=== PATIENT | male | born 1980 | race Caucasian/White ===

== ENCOUNTER 2018-04-20 10:10 | Emergency (ER) | payer OTHER, SELFPAY ==
[2018-04-20] VITALS (8 sets, daily range): BP systolic 146–191; BP diastolic 102–137; PULSE 82–104; RESP 16–20; TEMP 37.1; O2SAT 97–99; BMI 32.1
--- NOTE | 2018-04-20 10:46 | DI.RAD.S_ITS ---
PROCEDURE: XR CHEST 2V INDICATIONS: chest pain short of breath TECHNIQUE: 2 views of the chest were acquired. COMPARISON: None. FINDINGS: Surgical changes and devices: None. Lungs and pleura: No pleural effusions or pneumothorax. Interstitial prominence is seen throughout. Mediastinum: Mediastinal contours are normal. Heart size is normal. Bones and chest wall: No suspicious bony abnormalities. Mild dextroconvex scoliotic curvature is seen. Soft tissues appear unremarkable. IMPRESSION: Interstitial prominence is seen throughout. The interstitial prominence is nonspecific, yet may be related to pulmonary edema. Dictated by: Jameson Barclay M.D. on 04/20/2018 at 10:30 Approved by: Jameson Barclay M.D. on 04/20/2018 at 10:32
--- NOTE | 2018-04-20 10:49 | ED.GENADULT ---
HPI - General Adult General Chief complaint: Hypertension Stated complaint: HIGH BLOOD PRESSURE Time Seen by Provider: 04/20/18 10:18 Source: patient Mode of arrival: ambulatory History of Present Illness HPI narrative: Patient is a 37-year-old male presenting with shortness of breath. 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 He is noncompliant and has known hypertensive ischemic cardiomyopathy. He drinks energy drinks and smokes daily. He has an EF of about 35%. He has noticed over the last couple of weeks he is short of breath with exertion. He did not take his diuretics this morning to he could not take them and then drive to make his appointment. Has not taken any of his home medications this morning. She denies any chest pain or heart palpitations. He denies any cough, fever, lower extremity edema. Blood pressure in the office was 176/124. [place] Department Supervisor Dr. Garcia was concerned with his diastolic and recommended he come in for management and blood pressure control. Related Data Home Medications Medication Instructions Recorded Confirmed albuterol sulfate [Ventolin HFA] 2 puff INHALATION QID 04/20/18 04/20/18 carvedilol 12.5 mg PO BID 04/20/18 04/20/18 furosemide 20 mg PO DAILY 04/20/18 04/20/18 losartan 50 mg PO BID 04/20/18 04/20/18 spironolactone 25 mg PO DAILY 04/20/18 04/20/18 Allergies Allergy/AdvReac Type Severity Reaction Status Date / Time No Known Drug Allergies Allergy Verified 04/20/18 10:20 Review of Systems Review of Systems GENERAL: Denies chills, fatigue, malaise, fever, sweats, travel HEENT: Denies sinus pain, ear pain, sore throat, difficulty swallowing, neck pain RESPIRATORY: See HPI CARDIOVASCULAR: Denies chest pain, palpitations, orthopnea, edema GASTROINTESTINAL: Denies nausea, vomiting, abdominal pain, diarrhea, constipation, melena. : Denies dysuria, frequency, incontinence, hematuria, urinary retention, flank pain. MUSCULOSKELETAL: Denies weakness, joint pain, or bony pain SKIN: No rash, no erythema, no pruritus NEUROLOGIC: Denies weakness, dizziness, headache, numbness, change in speech, confusion PSYCHIATRIC: No concerning psychosocial issues. 12 point review of systems is negative except for those stated above and HPI PFSH Medical History CHF (congestive heart failure) (Acute) Cardiomyopathy (Acute) Hypertension (Acute) Social History Smoking Status: Current every day smoker Exam Initial Vital Signs Initial Vital Signs: Vital Signs Pulse Rate 104 H 04/20/18 10:15 Respiratory Rate 18 04/20/18 10:15 Blood Pressure 191/137 H 04/20/18 10:15 Pulse Oximetry 98 04/20/18 10:15 GENERAL: Well-appearing, well-nourished and in no acute distress. HEENT: Head atraumatic,EOMI, pupils reactive, face symmetric, CARDIOVASCULAR: Regular rate and rhythm without murmurs, rubs or gallops. RESPIRATORY: Breath sounds equal bilaterally, no wheezes rales or rhonchi. ABDOMEN: Soft, nontender. Normoactive bowel sounds all 4 quadrants. No guarding or rebound. EXTREMITIES: Normal range of motion, no clubbing or edema. Neurovascularly intact NEUROLOGICAL: Alert and oriented x4.Normal gait and speech. Cranial nerves II through XII grossly intact. SKIN: Warm, dry, no laceration, no petechiae, no rashes or lesions. Course Orders Ordered: ED Orders 04/20/18 10:36 B Type Natriuretic Peptide Stat Complete Blood Count AUTO DIFF Stat 04/20/18 10:44 Consult to Respiratory Therapy Evaluate & Treat Comprehensive Metabolic Panel Stat Troponin & CK Cardiac Panel Stat 04/20/18 10:46 XR chest 2V Stat Discontinued Medications Carvedilol (Coreg) 12.5 mg PO NOW ONE Stop: 04/20/18 11:17 Last Admin: 04/20/18 11:34 Dose: 12.5 mg Labetalol HCl (Normodyne) 20 mg IV NOW ONE Stop: 04/20/18 10:47 Last Admin: 04/20/18 10:57 Dose: 20 mg Vital Signs - 8 hr 04/20/18 10:15 04/20/18 10:23 04/20/18 10:55 Temperature 98.7 F Pulse Rate 104 H 104 H 98 H Respiratory Rate 18 16 18 Blood Pressure 188/137 H Blood Pressure [Left Arm] 191/137 H 191/129 H Pulse Oximetry 98 99 99 04/20/18 11:01 04/20/18 11:15 04/20/18 11:34 Temperature Pulse Rate 104 H 87 82 Respiratory Rate 18 Blood Pressure 146/104 H Blood Pressure [Left Arm] 183/136 H 168/113 H Pulse Oximetry 98 98 04/20/18 12:00 04/20/18 12:40 Temperature Pulse Rate 83 84 Respiratory Rate 16 20 Blood Pressure 146/102 H Blood Pressure [Left Arm] 152/103 H Pulse Oximetry 97 97 Medical Decision Making Lab Data Lab results reviewed: Yes I reviewed the patient's lab results. Result diagrams: 04/20/18 10:36 04/20/18 10:44 Lab Results 04/20/18 04/20/18 Range/Units 10:36 10:44 WBC 10.4 (4.5-11.0) X10^3/uL RBC 5.56 (4.5-5.9) X10^6/uL Hgb 16.4 (13.5-17.5) g/dL Hct 47.2 (41-53) % MCV 84.9 (80-100) fL MCH 29.5 (26-34) PG MCHC 34.7 (30-36) % RDW 13.5 (11.6-14.8) % Plt Count 220 (150-400) X10^3/uL Neut % (Auto) 71.1 (50-75) % Lymph % (Auto) 18.7 L (25-40) % Mineral % (Auto) 6.6 (3-14) % Eos % (Auto) 2.8 (2-4) % Baso % (Auto) 0.8 (0-2) % Neut # (Auto) 7400 H (3161-9453) /uL Sodium 143 (137-145) mmol/L Potassium 4.0 (3.4-5.1) mmol/L Chloride 104 (98-107) mmol/L Carbon Dioxide 27 (22-32) mmol/L BUN 11 (9-20) mg/dL Creatinine 0.90 (0.66-1.25) mg/dL Estimated GFR > 60.0 (>60) mL/min BUN/Creatinine Ratio 12.2 (6-22) Glucose 103 H (70-100) mg/dL Calcium 9.5 (8.4-10.2) mg/dL Total Bilirubin 0.9 (0.2-1.3) mg/dL AST 49 (17-59) IU/L ALT 51 (21-72) IU/L Alkaline Phosphatase 81 (38-126) U/L Total Creatine Kinase 105 (55-170) U/L CK-MB (CK-2) 2.39 H (<2.37) ng/mL CK-MB (CK-2) Rel Index 2.3 (1.5-5.0) % Troponin I 0.026 (0.01-0.034) ng/mL B-Natriuretic Peptide 204.0 H (<100) Total Protein 8.2 (6.3-8.2) g/dL Albumin 4.8 (3.5-5.0) g/dL Globulin 3.4 (1.7-4.1) g/dL Albumin/Globulin Ratio 1.4 (1.0-2.8) Imaging Data Chest x-ray: Radiologist's impression: PROCEDURE: XR CHEST 2V INDICATIONS: chest pain short of breath TECHNIQUE: 2 views of the chest were acquired. COMPARISON: None. FINDINGS: Surgical changes and devices: None. Lungs and pleura: No pleural effusions or pneumothorax. Interstitial prominence is seen throughout. Mediastinum: Mediastinal contours are normal. Heart size is normal. Bones and chest wall: No suspicious bony abnormalities. Mild dextroconvex scoliotic curvature is seen. Soft tissues appear unremarkable. IMPRESSION: Interstitial prominence is seen throughout. The interstitial prominence is nonspecific, yet may be related to pulmonary edema. Dictated by: Jameson Barclay M.D. on 04/20/2018 at 10:30 Approved by: Jameson Barclay M.D. on 04/20/2018 at 10:32 ECG Data Attestation: I personally reviewed and interpreted this ECG as follows: Prior ECG tracings: available for review Interpretation: Normal sinus rhythm rate [address] changes LVH noted similar to previous EKG in clinic earlier today. MDM Narrative Medical decision making narrative: Blood pressure is in a much more acceptable range. He is given his dose of Coreg as well. I have discussed with him at length it is important for him to take medications as directed and to stop smoking and stop drinking energy drinks. He understands and will try. Discharge Plan Departure Patient Disposition: Home Clinical Impression: Hypertension Discharge Date/Time: 04/20/18 12:40 Interventions: ED Discharge Assessment Last Done: 04/20/18 12:40 Instructions: DI for High Blood Pressure Activity Restrictions/Additional Instructions: *You have been diagnosed with hypertension *What to do: Stop smoking, stop energy during, take medication every day as you are supposed to *Continue to take medications as directed *Follow up with your primary care provider in 2-3 days, follow up with your digital cartographic technician as directed *Return to ER if you should have chest pain headache, shortness of breath, palpitation or any new, worsening or concerning symptoms Prescriptions: No Action losartan 50 mg Tablet 50 mg PO BID RF: 0 spironolactone 25 mg Tablet 25 mg PO DAILY RF: 0 carvedilol 3.125 mg Tablet 12.5 mg PO BID RF: 0 furosemide 20 mg Tablet 20 mg PO DAILY RF: 0 albuterol sulfate [Ventolin HFA] 90 mcg/actuation Hfa Aerosol Inhaler 2 puff INHALATION QID RF: 0 Referrals: Clarissa Garcia MD [Physician] -
[2018-04-20] MEDS: LABETALOL 100 MG/20ML MDV 20 MG IV (10:57)
[2018-04-20 11:01] LABS: Add Manual Diff / Slide Review NO; Basophils Percent Auto 0.8 % (0-2); Eosinophils Percent Auto 2.8 % (2-4); Hematocrit 47.2 % (41-53); Hemoglobin 16.4 g/dL (13.5-17.5); Lymphocytes Percent Auto 18.7 % (25-40); Mean Corpuscular HGB Conc 34.7 % (30-36); Mean Corpuscular Hemoglobin 29.5 PG (26-34); Mean Corpuscular Volume 84.9 fL (80-100); Monocytes Percent Auto 6.6 % (3-14); Neutrophils Absolute Auto 7400 /uL (3000-5900); Neutrophils Percent Auto 71.1 % (50-75); Platelet Count 220 X10^3/uL (150-400); Red Blood Cell Count 5.56 X10^6/uL (4.5-5.9); Red Cell Distribution Width 13.5 % (11.6-14.8); White Blood Cell Count 10.4 X10^3/uL (4.5-11.0)
[2018-04-20 11:09] LABS: Alanine Aminotransferase 51 IU/L (21-72); Albumin 4.8 g/dL (3.5-5.0); Albumin Globulin Ratio 1.4 (1.0-2.8); Alkaline Phosphatase 81 U/L (38-126); Aspartate Aminotransferase 49 IU/L (17-59); BUN Creatinine Ratio 12.2 (6-22); Bilirubin Total 0.9 mg/dL (0.2-1.3); Blood Urea Nitrogen 11 mg/dL (9-20); Calcium 9.5 mg/dL (8.4-10.2); Carbon Dioxide 27 mmol/L (22-32); Chloride 104 mmol/L (98-107); Creatine Kinase 105 U/L (55-170); Estimated Glomerular Filt Rate > 60.0 mL/min (>60); Globulin 3.4 g/dL (1.7-4.1); Glucose 103 mg/dL (70-100); HEMOLYSIS < 15 (0-50); Sodium 143 mmol/L (137-145); Total Protein 8.2 g/dL (6.3-8.2)
[2018-04-20 11:20] LABS: Troponin I 0.026 ng/mL (0.01-0.034)
[2018-04-20 11:24] LABS: CKMB % Relative Index 2.3 % (1.5-5.0); Creatine Kinase MB 2.39 ng/mL (<2.37)
[2018-04-20] MEDS: CARVEDILOL 12.5 MG TABLET PO (11:34)
== END 2018-04-20 12:40 | disposition home or self-care (01) ==
PROVIDERS: Emergency Provider Emergency Medicine
DX: I10 Essential (primary) hypertension (principal)
CPT/HCPCS: 36591; 71046; 80053; 82550; 82553; 83880; 84484; 85025; 93005; 96374; 99283; 99285

== ENCOUNTER → 2018-07-16 07:51 | Outpatient (CLI) | payer OTHER, SELFPAY ==
--- NOTE | 2018-07-16 | DI.ECHO.S_ITS ---
[place] +---------+ [facility] +---------+ : : [address] : : : : [id number] : : : : Phone: [phone]---------+ Echocardiogram Report + + :Name: EPIFANIO JOY Study Date: 07/16/2018 Height: 69 in : :[facility] Exam Location: IS Weight: 222 lb : : Gender: Male BSA: 2.2 m2 : :: 1980 Age: 37 yrs BP: 135/90 mmHg: :Reason For Study: Cardiomyopathy, Dilated : :Ordering Physician: Nic : :Jose Performed By: Zeny Page : :Referring: NIC SERRANO : + + Interpretation Summary The left ventricle is normal in size. Left ventricular ejection fraction is estimated to be 50 +/- 5%. The right ventricle is normal in size and function. A bicuspid aortic valve cannot be excluded. There is mild to moderate aortic regurgitation. The ascending aorta is moderately enlarged. Procedure: A two-dimensional transthoracic echocardiogram with color flow and Doppler was performed. The study quality was technically adequate. There is no prior echocardiogram noted for this patient. The patient was in normal sinus rhythm during the exam. Left Ventricle: The left ventricle is normal in size. There is borderline concentric left ventricular hypertrophy. There is no thrombus. Left ventricular ejection fraction is estimated to be 50 +/- 5%. There are no focal wall motion abnormalities. MV E/A: 1.1 Med Peak E' Noah: 5.5 cm/sec E/E' med: 17.5. Right Ventricle: The right ventricle is normal in size and function. Atria: Both atria are normal in size. There is no Doppler evidence for an interatrial shunt. Mitral Valve: The mitral valve is normal in structure and function. There is trace mitral regurgitation. Aortic Valve: A bicuspid aortic valve cannot be excluded. The aortic valve opens well. There is mild to moderate aortic regurgitation. There is an eccentric jet of aortic insufficiency directed against the anterior mitral leaflet. Tricuspid Valve: The tricuspid valve is normal in structure and function. There is a trace or physiologic amount of tricuspid regurgitation. Pulmonary artery pressures cannot be estimated because of the lack of a measurable TR jet velocity. Pulmonic Valve: The pulmonic valve is not well visualized. There is trace pulmonic regurgitation. Great Vessels: The aortic root is mildly dilated. The ascending aorta is moderately enlarged. The aortic arch is normal in size. The pulmonary artery is not well visualized, but is probably normal size. The IVC is of normal diameter and collapses greater than 50% with a sniff. This suggests a low right atrial pressure of 3 mm Hg. Pericardium/ Pleura There is no pericardial effusion. There is no pleural effusion. MMode/2D Measurements & Calculations LVIDd: 5.1 cm LVOT diam: 2.3 cm LVIDs: 4.1 cm Ao root diam: 4.0 cm FS: 20.4 % asc Aorta Diam: 4.1 cm EPSS: 0.96 cm Ao Arch Diam (Prox Trans): 2.7 cm IVSd: 1.0 cm LVPWd: 1.4 cm LV loya. diameter/BSA (cm/m^2): 2.4 LV sys. diameter/BSA (cm/m^2): 1.9 LA A2 area: 23.0 cm2 RA long axis: 5.5 cm LA A4 area: 14.8 cm2 RA area: 20.9 cm2 LA length (vol): 5.5 cm RA vol: 67.8 ml LA vol: 52.2 ml RA : 31.4 ml/m2 LA vol index: 24.2 ml/m2 IVC diam: 1.4 cm RVD1 (basal): 3.9 cm Doppler Measurements & Calculations Ao V2 max: 200.3 cm/sec LVOT Max Noah: 83.1 cm/sec Ao V2 mean: 151.4 cm/sec LV V1 max P.8 mmHg Ao max P.0 mmHg LV V1 VTI: 16.1 cm Ao mean P.7 mmHg JACI(I,D): 1.9 cm2 Ao V2 VTI: 35.3 cm JACI(V,D): 1.7 cm2 sev ratio: 0.46 JACI indexed to BSA (cm^2/m^2): 0.87 AI P1/2t: 541.6 msec AI dec slope: 242.7 cm/sec2 MV E max noah: 95.5 cm/sec TR max noah: 179.4 cm/sec MV A max noah: 87.6 cm/sec TR max P.9 mmHg MV E/A: 1.1 PA V2 max: 53.8 cm/sec Med Peak E' Noah: 5.5 cm/sec PA V2 mean: 33.4 cm/sec E/E' med: 17.5 PA mean P.50 mmHg Lat Peak E' Noah: 7.5 cm/sec PA Accel Time: 0.06 sec E/E' lat: 12.7 E/e' average: 15.1 MV dec time: 0.17 sec MV P1/2t: 51.8 msec MV P1/2t max noah: 94.7 cm/sec MVA(P1/2t): 4.2 cm2 Reading Physician:JUNO
== END ==
PROVIDERS: PCP Internal Medicine; Visit Provider Internal Medicine Cardiovascular Disease
DX: I35.1 Nonrheumatic aortic (valve) insufficiency (principal); I42.0 Dilated cardiomyopathy
CPT/HCPCS: 93306

== ENCOUNTER → 2023-03-30 13:32 | Outpatient (CLI) | payer OTHER, SELFPAY ==
--- NOTE | 2023-03-30 | DI.ECHO.S_ITS ---
[place] +---------+ [facility] +---------+ : : [address] : : : : [id number] : : : : Phone: [phone]+ Echocardiogram Report + + :Name: EPIFANIO JOY Study Date: 03/30/2023 Height: 68 in : :[facility] ReadingLocation: Weight: 215 lb : : Gender: Male BSA: 2.1 m2 : :: 1980 Age: 42 yrs BP: 132/98 mmHg: :Reason For Study: Bicuspid Aortic Valve : :Ordering Physician: MAGGIE, : :NIC Performed By: Patti Hubbard : :Referring: NIC SERRANO : + + Interpretation Summary The left ventricle is normal in size and wall thickness. The left ventricular ejection fraction is normal. The ejection fraction is estimated to be 60-65%. Compared to the prior exam, the left ventricular function is improved. The right ventricle is normal in size and function. The aortic valve is not well visualized. A bicuspid aortic valve cannot be excluded. The aortic valve opens well. The aortic valve is mildly calcified. There is a nodule calcification of presumed to be noncoronary cusp which is more prominent on today's study. In 2018, not much calcification of the aortic valve. There is mild to moderate aortic regurgitation. Compared to the prior echo study, there has been no change in the severity of aortic regurgitation. The IVC is of normal diameter and collapses greater than 50% with a sniff. This suggests a low right atrial pressure of 3 mm Hg. The ascending aorta is moderately enlarged. 4.3 cm in diameter. In July 2018, 4.1 cm in diameter. Procedure: A two-dimensional transthoracic echocardiogram with color flow and Doppler was performed. The study quality was technically adequate. Comparison is made with the echocardiogram of 07/16/2018. The patient was in normal sinus rhythm during the exam. Left Ventricle: The left ventricle is normal in size and wall thickness. There is no thrombus. The ejection fraction is estimated to be 60-65%. The left ventricular ejection fraction is normal. Compared to the prior exam, the left ventricular function is improved. There are no focal wall motion abnormalities. Diastolic parameters suggest a relaxation abnormality of the left ventricle, consistent with probable normal filling pressures. Right Ventricle: The right ventricle is normal in size and function. Atria: The left atrial size is normal. There has been no significant change since the previous study. Right atrial size is normal. There is no Doppler evidence for an interatrial shunt. Mitral Valve: There is mild mitral annular calcification. There is no mitral valve stenosis. There is trace mitral regurgitation. Aortic Valve: A bicuspid aortic valve cannot be excluded. The aortic valve is not well visualized. The aortic valve opens well. The aortic valve is mildly calcified. There is a nodule calcification of presumed to be noncoronary cusp which is more prominent on today's study. In 2018, not much calcification of the aortic valve. There is no aortic valve stenosis. There is mild to moderate aortic regurgitation. Compared to the prior echo study, there has been no change in the severity of aortic regurgitation. Tricuspid Valve: The tricuspid valve is normal. There is no tricuspid stenosis. There is trace tricuspid regurgitation. The right ventricular systolic pressure is estimated to be at least 16 mmHg based on an estimated right atrial pressure of 3 mm Hg. Pulmonic Valve: The pulmonic valve is not well visualized. There is no pulmonic valvular stenosis. There is trace pulmonic regurgitation. Great Vessels: The aortic root is borderline dilated. The ascending aorta is moderately enlarged. The pulmonary artery is normal size. The IVC is of normal diameter and collapses greater than 50% with a sniff. This suggests a low right atrial pressure of 3 mm Hg. Pericardium/ Pleura There is no pericardial effusion. There is no pleural effusion. MMode/2D Measurements & Calculations LVIDd: 4.7 cm LVOT diam: 2.1 cm LVIDs: 2.9 cm Ao root diam: 3.8 cm FS: 38.3 % asc Aorta Diam: 4.3 cm EPSS: 1.0 cm IVSd: 0.90 cm LVPWd: 1.0 cm LV loya. diameter/BSA (cm/m^2): 2.2 LV sys. diameter/BSA (cm/m^2): 1.4 LA A2 area: 15.1 cm2 RA long axis: 4.9 cm LA A4 area: 11.2 cm2 RA area: 13.8 cm2 LA length (vol): 5.6 cm RA vol: 33.0 ml LA vol: 25.8 ml RA : 15.6 ml/m2 LA vol index: 12.2 ml/m2 RVD1 (basal): 3.2 cm LVLs ap4: 6.8 cm LVLd ap2: 7.9 cm TAPSE_phl: 2.0 cm LVLs ap2: 7.0 cm Doppler Measurements & Calculations Ao V2 max: 185.8 cm/sec LVOT Max Noah: 100.5 cm/sec Ao V2 mean: 129.0 cm/sec LV V1 max P.0 mmHg Ao max P.0 mmHg LV V1 VTI: 19.5 cm Ao mean P.8 mmHg JACI(I,D): 1.9 cm2 Ao V2 VTI: 35.5 cm JACI(V,D): 1.9 cm2 sev ratio: 0.55 JACI indexed to BSA (cm^2/m^2): 0.90 MV E max noah: 70.2 cm/sec TR max noah: 180.0 cm/sec MV A max noah: 84.4 cm/sec TR max P.0 mmHg MV E/A: 0.83 PA V2 max: 92.8 cm/sec Med Peak E' Noah: 5.5 cm/sec PA V2 mean: 64.6 cm/sec E/E' med: 12.7 PA mean P.0 mmHg Lat Peak E' Noah: 6.1 cm/sec PA pr(Accel): 40.8 mmHg E/E' lat: 11.5 E/e' average: 12.1 MV dec time: 0.24 sec SV(LVOT): 67.5 ml AV VR_phl: 0.54 JACI(VTI)/BSA_phl: 0.90 Reading Physician:01:39 PM
== END ==
PROVIDERS: PCP Internal Medicine; Referring Provider Internal Medicine Cardiovascular Disease; Visit Provider Internal Medicine Cardiovascular Disease
DX: Q23.1 Congenital insufficiency of aortic valve (principal); I77.810 Thoracic aortic ectasia; I77.89 Other specified disorders of arteries and arterioles
CPT/HCPCS: 93306

== ENCOUNTER → 2024-09-12 12:33 | Outpatient (CLI) | payer OTHER, SELFPAY ==
--- NOTE | 2024-09-12 12:34 | DI.ECHO.S_ITS ---
[place] +---------+ [facility] : : [address] : : [place] : : [id number] : : Phone: [phone] Echocardiogram Report + + :Name: EPIFANIO JOY Study Date: 09/12/2024 Height: 68 in : :[facility] ReadingLocation: Weight: 229 lb : : Gender: Male BSA: 2.2 m2 : :: 1980 Age: 44 yrs BP: 125/87 mmHg: :Reason For Study: BICUSPID AORTIC VALVE : :Ordering Physician: MAGGIE, : :NIC Performed By: Ban Avila : :Referring: NIC SERRANO : + + Interpretation Summary The left ventricle is normal in size and wall thickness. The left ventricular ejection fraction is normal. The ejection fraction is estimated to be 60-65%. No significant change in LVEF from the previous study. The right ventricle is normal in size and function. The aortic valve is bicuspid. There is no aortic valve stenosis. There is mild to moderate aortic regurgitation. Compared to the prior echo study, there has been no change in the severity of aortic regurgitation. The ascending aorta is moderately enlarged. 4.3 cm in diameter. Unchanged from the previous study. The IVC is of normal diameter and collapses greater than 50% with a sniff. This suggests a low right atrial pressure of 3 mm Hg. Procedure: A two-dimensional transthoracic echocardiogram with color flow and Doppler was performed. The study quality was technically adequate. Comparison is made with the echocardiogram of 03/30/2023. The patient was in sinus rhythm with heart rates between 63-80 bpm during the exam. Left Ventricle: The left ventricle is normal in size and wall thickness. There is no thrombus. The ejection fraction is estimated to be 60-65%. The left ventricular ejection fraction is normal. There are no obvious focal wall motion abnormalities noted but poor endocardial definition reduces the sensitivity for the detection of such. MV E/A: 1.0 Med Peak E' Noah: 6.9 cm/sec E/E' med: 11.6. Right Ventricle: The right ventricle is normal in size and function. Atria: The left atrial size is normal. There has been no significant change since the previous study. Right atrial size is normal. There is no Doppler evidence for an interatrial shunt. Mitral Valve: There is mild mitral annular calcification. There is no mitral regurgitation noted. Aortic Valve: The aortic valve is bicuspid. There is a nodule calcification of presumed to be noncoronary cusp, seen on previous images as well. The peak aortic velocity is 1.98 m/sec. The aortic valve mean gradient is 9 mmHg. There is no aortic valve stenosis. There is mild to moderate aortic regurgitation. Compared to the prior echo study, there has been no change in the severity of aortic regurgitation. Tricuspid Valve: The tricuspid valve leaflets are thin and pliable. There is trace tricuspid regurgitation. Pulmonary artery pressures cannot be estimated because of the lack of a measurable TR jet velocity. Pulmonic Valve: The pulmonic valve leaflets are thin and pliable; valve motion is normal. There is trace pulmonic regurgitation. Great Vessels: The aortic root is normal size. The ascending aorta is moderately enlarged. The IVC is of normal diameter and collapses greater than 50% with a sniff. This suggests a low right atrial pressure of 3 mm Hg. Pericardium/ Pleura There is no pericardial effusion. There is no pleural effusion. MMode/2D Measurements & Calculations LVIDd: 5.3 cm LVOT diam: 2.2 cm LVIDs: 3.6 cm Ao root diam: 3.7 cm FS: 31.9 % asc Aorta Diam: 4.3 cm EPSS: 1.3 cm Ao Arch Diam (Prox Trans): 2.9 cm IVSd: 0.90 cm LVPWd: 0.93 cm LV loya. diameter/BSA (cm/m^2): 2.4 LV sys. diameter/BSA (cm/m^2): 1.7 LA A2 area: 18.1 cm2 RA long axis: 4.9 cm LA A4 area: 12.1 cm2 RA area: 14.1 cm2 LA length (vol): 5.1 cm RA vol: 34.4 ml LA vol: 36.7 ml RA : 15.9 ml/m2 LA vol index: 16.9 ml/m2 IVC diam: 1.4 cm RVD1 (basal): 3.9 cm RVD2 (mid): 2.8 cm TAPSE: 1.9 cm Doppler Measurements & Calculations Ao V2 max: 198.7 cm/sec LVOT Max Noah: 97.3 cm/sec Ao V2 mean: 145.1 cm/sec LV V1 max P.8 mmHg Ao max P.8 mmHg LV V1 VTI: 22.3 cm Ao mean P.2 mmHg JACI(I,D): 2.1 cm2 Ao V2 VTI: 42.0 cm JACI(V,D): 1.9 cm2 sev ratio: 0.53 JACI indexed to BSA (cm^2/m^2): 0.96 AI P1/2t: 586.6 msec AI dec slope: 181.3 cm/sec2 MV E max noah: 80.6 cm/sec PA V2 max: 107.3 cm/sec MV A max noah: 78.2 cm/sec PA V2 mean: 72.5 cm/sec MV E/A: 1.0 PA mean P.4 mmHg Med Peak E' Noah: 6.9 cm/sec PA pr(Accel): 32.8 mmHg E/E' med: 11.6 Lat Peak E' Noah: 10.7 cm/sec E/E' lat: 7.6 E/e' average: 9.6 MV dec time: 0.20 sec SV(LVOT): 86.8 ml Reading Physician:04:13 PM
== END ==
LOC: ECHO 12:33
PROVIDERS: PCP Internal Medicine; Referring Provider Internal Medicine Cardiovascular Disease; Visit Provider Internal Medicine Cardiovascular Disease
DX: Q23.81 Bicuspid aortic valve (principal); I34.81 Nonrheumatic mitral (valve) annulus calcification; I35.1 Nonrheumatic aortic (valve) insufficiency; I77.89 Other specified disorders of arteries and arterioles
CPT/HCPCS: 93306